=== PATIENT | male | born 1965 | race Two or more races ===

== ENCOUNTER 2018-07-19 23:43 | Emergency (ER) | payer BC, OTHER ==
[~2018-07-19] VITALS: Ht 170.2 cm; Wt 63.5 kg
[2018-07-19] MEDS ORDERED: NKM (23:53)
[2018-07-20] MEDS ORDERED: Norco 5mg/325mg tab ORAL ONE
[2018-07-20] MEDS ORDERED: HYDROCODON-ACE1 EA15 ORAL (00:03)
[2018-07-20] MEDS ORDERED: VALIUM5 MG ORAL (00:03)
[2018-07-20] MEDS ORDERED: IBUPROFEN600 MG ORAL (00:03)
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
[2018-07-20 00:15] VITALS: BP 106/67
== END 2018-07-20 00:15 | disposition home or self-care (01) ==
LOC: EMR 23:59
DX: S39.012A Strain of muscle, fascia and tendon of lower back, initial encounter (principal); V43.52XA Car driver injured in collision with other type car in traffic accident, initial encounter; Y92.410 Unspecified street and highway as the place of occurrence of the external cause
CPT/HCPCS: 99283